=== PATIENT | male | born 1985 | race Two or more races ===

== ENCOUNTER 2018-03-15 12:19 | Emergency (ER) | payer MEDICAID ==
[~2018-03-15] VITALS: Ht 190.5 cm; Wt 97.0 kg
[~2018-03-15 12:19] MED LIST: ALBU18HF2 INH; ALBU8.5H8 IH; BAC15O TP; HYDR-4353 PO; LEVO500T2 PO
[2018-03-15 12:21] VITALS: BP 152/86
[2018-03-15] MEDS ORDERED: ketorolac trometh inj. 60 MG/2 ML VIAL IM ONE (12:45)
== END 2018-03-15 13:24 | disposition home or self-care (01) ==
LOC: ER 12:20
DX: R07.1 Chest pain on breathing (principal); J45.909 Unspecified asthma, uncomplicated; G89.29 Other chronic pain; F15.90 Other stimulant use, unspecified, uncomplicated; Z98.890 Other specified postprocedural states; Z88.0 Allergy status to penicillin; Z79.899 Other long term (current) drug therapy
CPT/HCPCS: 93005; 96372; 99283; J1885

== ENCOUNTER 2018-07-12 03:05 | Emergency (ER) | payer MEDICAID ==
[~2018-07-12] VITALS: Ht 190.5 cm; Wt 102.3 kg
[2018-07-12 03:10] VITALS: BP 141/82
[2018-07-12] MEDS ORDERED: naproxen 500mg tablet PO ONE (03:50)
== END 2018-07-12 04:12 | disposition left against medical advice (07) ==
LOC: ER 03:06
DX: M25.551 Pain in right hip (principal); Z53.21 Procedure and treatment not carried out due to patient leaving prior to being seen by health care provider; X58.XXXA Exposure to other specified factors, initial encounter; Y93.89 Activity, other specified; Y92.89 Other specified places as the place of occurrence of the external cause; Y99.8 Other external cause status

== ENCOUNTER 2021-08-07 17:11 | Emergency (ER) | payer MEDICAID ==
[~2021-08-07] VITALS: Ht 190.5 cm; Wt 120.0 kg
[~2021-08-07 17:11] MED LIST changes: +ALBU8.5H17 IH; -ALBU8.5H8 IH; +KETO10TA2 PO
[2021-08-07 17:26] VITALS: BP 172/87
[2021-08-07] MEDS ORDERED: ALBUTEROL INHALER 1 PUFF/90 MCG INHALER IH PRN (18:20)
[2021-08-07] MEDS ORDERED: albuterol 2.5 MG/3 ML nebule NEB PRN (19:19)
== END 2021-08-07 19:18 | disposition home or self-care (01) ==
LOC: ER 17:12
DX: R04.2 Hemoptysis (principal); Z20.822 Contact with and (suspected) exposure to COVID-19; M54.6 Pain in thoracic spine; R05.9 Cough, unspecified; R51.9 Headache, unspecified; R09.81 Nasal congestion; J45.909 Unspecified asthma, uncomplicated; G89.29 Other chronic pain; F17.200 Nicotine dependence, unspecified, uncomplicated; F15.90 Other stimulant use, unspecified, uncomplicated; Z72.89 Other problems related to lifestyle; Z88.0 Allergy status to penicillin; Z79.2 Long term (current) use of antibiotics; Z79.899 Other long term (current) drug therapy
CPT/HCPCS: 71045; 87635; 93005; 99285; C9803